=== PATIENT | female | born 1990 | race Hispanic/Latino ===

== ENCOUNTER 2018-01-06 18:39 | Inpatient (IN) | payer OTHER ==
[~2018-01-06] VITALS: Ht 160 cm; Wt 83.9 kg
[2018-01-06 19:08] LABS: APPEARANCE,URINE Clear (CLEAR); BILIRUBIN,URINE Negative (NEGATIVE); COLOR,URINE Yellow (YELLOW); GLUCOSE, URINE (UA) Negative (NEGATIVE); KETONES,URINE Negative (NEGATIVE); LEUKOCYTE ESTERASE ,URINE Moderate (NEGATIVE); NITRATE,URINE Negative (NEGATIVE); OCCULT BLOOD,URINE Nonhemolyzed Trace (NEGATIVE); PROTEIN,URINE Negative (NEGATIVE)
[2018-01-06 19:45] LABS: BACTERIA,URINE Rare /HPF (None Seen); RBC,URINE 0-1 /HPF (0-1); SQUAMOUS EPITHELIAL CELL,UR Moderate /HPF (0-2)
[2018-01-06] MEDS ORDERED: LACTATED RINGERS 1000ML 1,000 ML IV ONE (19:55)
[2018-01-06] MEDS ORDERED: OXYTOCIN-LR 20 UNITS/1000 ML 1,000 ML IV SCH (20:00)
[2018-01-06] MEDS ORDERED: NALOXONE HCL 0.4 MG/1 ML ML IV PRN (20:00)
[2018-01-06] MEDS ORDERED: LACTATED RINGERS 500 ML 500 ML IV PRN (20:00)
[2018-01-06] MEDS ORDERED: AMPICILLIN 2GM+NS 100ML 100 ML IV SCH (20:00)
[2018-01-06] MEDS: AMPICILLIN 1GM+NS 50ML 50 ML IV SCH (20:00)
[2018-01-06] MEDS ORDERED: EPHEDRINE SULFATE 50 MG/ML AMPULE IVP PRN (20:00)
[2018-01-06 20:28] LABS: HEMATOCRIT 38.9 % (36-48); MEAN CORPUSCULAR HEMOGLOBIN 32.4 pg (27.0-33.0); MEAN CORPUSCULAR HGB CONC 34.9 g/dL (32.0-36.0); MEAN CORPUSCULAR VOLUME 92.8 fL (79-99); PLATELET COUNT (AUTO) 238 K/uL (130-400); RED BLOOD CELL COUNT(AUTO) 4.19 MIL/uL (4.00-5.50); WHITE BLOOD COUNT (AUTO) 10.7 K/uL (4.8-10.8)
[2018-01-06 20:41] VITALS: BP 109/65
[2018-01-07] MEDS: LACTATED RINGERS 1000ML 1,000 ML IV PRN ×2 (02:49→02:50)
[2018-01-07] MEDS: AMPICILLIN 1GM+NS 50ML 50 ML IV SCH ×3 (04:12→12:02)
[2018-01-07] MEDS ORDERED: OXYTOCIN 10 USP UNITS/ML ONE ×2 (08:12→13:47)
[2018-01-07] MEDS ORDERED: OXYTOCIN 10 USP UNITS/ML 20 UNIT in LACTATED RINGERS 1000ML 1,000 ML IV SCH (08:15)
[2018-01-07] MEDS ORDERED: SODIUM CHLORIDE 0.9% 10 ML VIAL ONE (10:32)
[2018-01-07] MEDS ORDERED: FENTANYL CITRATE PF 50 MCG/1 ML 2ML VIAL ONE (10:32)
[2018-01-07] MEDS ORDERED: LIDOCAINE HCL-MPF 2% 10ML AMP IJ ONE (10:33)
[2018-01-07] MEDS ORDERED: DIPH,PERTUSS(ACELL),TET VAC/PF 0.5 ML VIAL IM PRN (13:45)
[2018-01-07] MEDS ORDERED: HYDROCODONE/ACETAMINOPHEN 5/325 MG TAB PO PRN (13:45)
[2018-01-07] MEDS ORDERED: ACETAMINOPHEN 325 MG TAB PO PRN (13:45)
[2018-01-07] MEDS ORDERED: BENZOCAINE/LANOLIN/ALOE VERA 60 ML AEROSOL TP PRN (13:45)
[2018-01-07] MEDS ORDERED: WITCH HAZEL 1 PAD TP PRN (13:45)
[2018-01-07] MEDS ORDERED: MEASLES/MUMPS/RUBELLA VACCINE, LIVE 0.5 ML/VIAL SQ PRN (13:45)
[2018-01-07] MEDS ORDERED: LANOLIN 30GM OINTMENT TP PRN (13:45)
[2018-01-07] MEDS ORDERED: ACETAMINOPHEN-CODEINE 300/30MG TAB PO PRN (13:45)
[2018-01-07] MEDS ORDERED: LACTATED RINGERS 1000ML 1,000 ML IV ONE (13:47)
[2018-01-07] MEDS: IBUPROFEN 600 MG TABLET PO PRN ×2 (15:28→22:41)
[2018-01-07 15:53] VITALS: BP 120/71
[2018-01-07] MEDS ORDERED: PNV1TABL17 PO (18:07)
[2018-01-07 20:50] VITALS: BP 117/65
[2018-01-07] MEDS: DOCUSATE SODIUM 100 MG CAP PO SCH (20:55)
[2018-01-07 23:50] VITALS: BP 116/67
[2018-01-08 04:02] VITALS: BP 105/59
[2018-01-08] MEDS: IBUPROFEN 600 MG TABLET PO PRN ×2 (05:22→13:56)
[2018-01-08 07:21] LABS: HEPATITIS Bs ANTIGEN SCREEN P Negative (Negative)
[2018-01-08 07:35] VITALS: BP 98/72
[2018-01-08] MEDS: DOCUSATE SODIUM 100 MG CAP PO SCH (08:17)
[2018-01-08 12:00] VITALS: BP 94/60
== END 2018-01-08 14:15 | disposition home or self-care (01) | DRG 807 ==
LOC: LDH 18:39 → OBSVTOIN 18:39 → WSH 01-07 15:43
PROVIDERS: ADMIT Obstetrics & Gynecology; ATTEND Obstetrics & Gynecology
PROC: 10E0XZZ Delivery of Products of Conception, External Approach (ICD-10-PCS; principal; 2018-01-07)
PROC: 0KQM0ZZ Repair Perineum Muscle, Open Approach (ICD-10-PCS; 2018-01-07)
PROC: 10907ZC Drainage of Amniotic Fluid, Therapeutic from Products of Conception, Via Natural or Artificial Opening (ICD-10-PCS; 2018-01-07)
PROC: 3E0R3BZ Introduction of Anesthetic Agent into Spinal Canal, Percutaneous Approach (ICD-10-PCS; 2018-01-07)
PROC: 00HU33Z Insertion of Infusion Device into Spinal Canal, Percutaneous Approach (ICD-10-PCS; 2018-01-07)
DX: O62.2 Other uterine inertia (principal); Z37.0 Single live birth; O70.1 Second degree perineal laceration during delivery; O77.0 Labor and delivery complicated by meconium in amniotic fluid; Z3A.39 39 weeks gestation of pregnancy
CPT/HCPCS: 36415; 81001; 85027; 86592; 86850; 86900; 86901; 87340; A4314; J0290; J2590; J3010; J3490; J7120